=== PATIENT | male | born 1935 | race Caucasian/White ===

== ENCOUNTER → 2016-10-04 | Outpatient (CLI) | payer BC ==
[2016-10-04 13:44] LABS: URINE APPEARANCE CLEAR (CLEAR); URINE BILIRUBIN NEG (NEG); URINE COLOR YELLOW; URINE EPITHELIAL CELL AUTO 0-5 /lpf (0-5); URINE NITRITE NEG (NEG); URINE PH 6.5 (4.5-7.5); URINE SPECIFIC GRAVITY 1.014 (1.000-1.030); UROBILINOGEN NEG (NEG)
[2016-10-04 13:54] LABS: MANUAL MICROSCOPIC REQUIRED? NO; REVIEW REQ? NO
== END | disposition home or self-care (01) ==
LOC: C.LAB1850 12:05
PROVIDERS: ATTEND Internal Medicine
DX: N40.0 Benign prostatic hyperplasia without lower urinary tract symptoms (principal)

== ENCOUNTER → 2016-12-04 | Outpatient (CLI) | payer BC ==
[2016-12-04 15:28] LABS: BLOOD UREA NITROGEN 15 mg/dl (7-18); CARBON DIOXIDE 30 mmol/L (21-32); CHLORIDE 105 mmol/L (98-107); GLUCOSE 77 mg/dl (70-99); POTASSIUM 3.9 mmol/L (3.5-5.1); SODIUM 141 mmol/L (136-145)
== END | disposition home or self-care (01) ==
LOC: C.LAB1850 13:47
PROVIDERS: ATTEND Internal Medicine
DX: G62.9 Polyneuropathy, unspecified (principal)

== ENCOUNTER → 2017-04-20 | Outpatient (CLI) | payer BC | END | disposition home or self-care (01) | LOC: C.LAB1850 13:18 | PROVIDERS: ATTEND Internal Medicine Endocrinology, Diabetes & Metabolism | DX: E23.0 Hypopituitarism (principal) ==

== ENCOUNTER → 2017-05-24 | Outpatient (CLI) | payer BC ==
[2017-05-24 16:57] LABS: CALCIUM 9.4 mg/dl (8.5-10.1)
[2017-05-25 07:05] LABS: ESTIMATED AVERAGE GLUCOSE 111 mg/dl; HA1C FLAG Normal (Normal)
[2017-05-29 22:20] LABS: ILGF1 Z SCORE MALE 0.9 SD (-2.0 - +2.0)
== END | disposition home or self-care (01) ==
LOC: C.LAB1850 14:09
PROVIDERS: ATTEND Internal Medicine Endocrinology, Diabetes & Metabolism
DX: E55.9 Vitamin D deficiency, unspecified (principal); R73.9 Hyperglycemia, unspecified; E03.8 Other specified hypothyroidism; M85.80 Other specified disorders of bone density and structure, unspecified site; E27.49 Other adrenocortical insufficiency; Z87.898 Personal history of other specified conditions; E23.0 Hypopituitarism; Z92.29 Personal history of other drug therapy

== ENCOUNTER 2024-11-03 11:20 | Inpatient (IN) ==
--- NOTE | 2024-11-03 11:27 | Emergency Department Note ---
Impression & Plan Compression fracture of L2 lumbar vertebra, Sacral insufficiency fracture, Ambulatory dysfunction, Back pain ED Provider Note NAME: HUMPHREY CESPEDES AGE: 88 SEX: M : 1935 ARRIVES VIA: Ambulance INFORMANT: Patient, ED PROVIDER(S): Arturo Klein MD CHIEF COMPLAINT: Fall, back pain MEDICAL DECISION MAKING: Patient presents with the above. IV was established and blood work was obtained. Patient also did have CT completed of the lumbar spine. Patient was ordered IV morphine 2 mg IV methylprednisolone 1 of 25 mg, Tylenol as well as lidocaine patch. Patient's blood work shows a white count 11.2 with a normal H&H and platelet count. The patient's kidney function is unremarkable. CK of 333. Patient is tolerating by mouth. The patient CT does show concern for L2 compression fracture with 30% loss of vertebral body height. Acute to subacute bilateral sacral wes insufficiency fractures. L4 compression fracture noted which is new from prior comparison but likely chronic in nature. I did inform the patient of these findings. The patient is still moving his legs well but does have pain with trying to do straight leg raise. I did speak the on-call hospital service cleared Jerrod and Dr. Kraig mariscal. I did speak with Dr. Coon who did agree with an LSO and pain management. Patient was admitted to the medicine service. Definitive Fracture Care note: Dx: L2 compression fracture Plan: Immobilization, rest, ice, elevation, analgesia, orthopedic follow up in 3-5 days. Discussion w/ other healthcare providers: Dr. Elder and Dr. Guerrero our inpatient medicine service Dr. Coon orthopedic spine Prior /Outside records reviewed: none Differential diagnosis: Musculoskeletal, disc herniation, fracture, metastatic disease, cord compression, discitis, sciatica, cauda equina, infection, aortic disease, renal colic, gastrointestinal, as well as other pathologies. Diagnostics, as interpreted by me: ECG:Sinus, rate of 77, normal intervals, normal axis, T wave versions in lead III. No obvious ST elevations. Cardiac monitoring: An order was placed for continuous cardiac monitoring. The monitor shows a rate of 79 with sinus rhythm. Patient was placed on pulse oximetry Medical decision rules: None Imaging studies: I informally interpreted the patient's lumbar CT does show concern for lumbar compression fracture with formal report to follow. HPI: Patient presents due to concern for back pain. The patient reports that he fell and initially at the time of the fall in his kitchen which is a slight floor he did not have any pain at that time but then the following morning which was of the patient had pain. The patient states that he is essentially been laying in bed for the last several days. Patient does have a neighbor that has an adjoining apartments so he has been able to bring him something to eat and drink as well as take his medications. Patient has taken some Tylenol at home. No significant relief. Patient denies any head strike or LOC. He does not take any blood thinning medications. The patient has had difficulty with ambulation to the point where he has not been walking much at all these last several days. Patient does complain of lower back pain. No bowel or bladder incontinence or retention no saddle anesthesia. PAST MEDICAL HISTORY: See Below PAST SURGICAL HISTORY: See Below SOCIAL HISTORY: See Below HOME MEDICATIONS: See Below ALLERGIES: See Below VITALS: See Below PHYSICAL EXAMINATION: GENERAL: NAD, non-toxic. EYE EXAM: Normal conjunctiva. PERRL, no anisocoria and EOM's grossly intact w/o pain. OROPHARYNX: Moist mucus membranes, grossly normal dentition. NECK: Trachea midline, no stridor. Supple, no nuchal rigidity, no adenopathy, non-tender. No signs of meningismus. FROM of the neck with good chin to chest and neck extension. LUNGS: Clear to auscultation. Normal chest wall mechanics. HEART: NSR, no MRG. ABDOMEN: Abdomen soft, non-tender, no masses, no rebound or guarding. BACK: No CVA TTP. Reproducible midline lower back and sacral pain. SKIN: No rashes and no bruising. UPPER EXTREMITIES: Upper extremities are grossly normal. LOWER EXTREMITIES: Grossly normal, no edema. Able to bend at the knees, difficulty with straight leg raise secondary to back pain. NEURO EXAM: A&O x3, cranial nerves II-XII grossly intact, normal speech, moves all 4 extremities. Past Med/Surg History Problem List Back pain (Acute) Ambulatory dysfunction (Acute) Sacral insufficiency fracture (Acute) Compression fracture of L2 lumbar vertebra (Acute) Hyperreflexia Weakness Brain fog Health care maintenance Cerebral microvascular disease H/O: CVA (cerebrovascular accident) Left-sided face pain History of colon polyps Vitamin D deficiency TMJ arthropathy (Chronic) Post herpetic neuralgia (Chronic) Gait abnormality (Chronic) BPH with obstruction/lower urinary tract symptoms (Acute) Essential hypertension (Acute) no meds Growth hormone deficiency (Acute) Hyperglycemia (Chronic) Intestinal disaccharidase deficiency (Acute) Irritable bowel syndrome (Chronic) Lumbar spinal stenosis (Chronic) Osteopenia (Acute) 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 Medical History Left ear impacted cerumen BPH (benign prostatic hyperplasia) IBS (irritable bowel syndrome) Growth hormone insufficiency Macular degeneration TMJ (temporomandibular joint disorder) gets pain in left side from time to time, hasn't locked Family history of colon cancer in mother Post herpetic neuralgia History of shingles 2018, covered whole left side of scalp and part of eye/face Bloating Hx of gout Tooth abscess resolved Kidney stones passed on own Diverticular disease Sciatica, unspecified side Surgical History History of open reduction and internal fixation (ORIF) procedure rt. femur History of cataract surgery left/right History of esophagogastroduodenoscopy (EGD) History of colonoscopy History of tooth extraction 1 abscessed molar removed History of tonsillectomy H/O partial hypophysectomy Family History Father Aneurysm Cerebrovascular disease Hypertension Mother Colorectal cancer Denies family history of Ovarian cancer Prostate cancer Myocardial infarction Breast cancer Social History Smoking Status: Never smoker Tobacco Type: Cigarettes Second Hand Exposure: No; Do You Dip or Chew Tobacco: No; Hx Alcohol Use: Yes Alcohol type: beer and wine Hx Substance Use: Yes (Medical Marijuana) Last Used Substance: Unknown Last Used Substance Other:: almost every daily Substance Use Type Other:: medical card > flower buds > uses prn Preferred Language: Wolof Communication Ability: Effective Pediatric Physical Therapy Assistant Required: No Beliefs That Will Affect Care: None marital status: Single Current Living Situation: Alone current occupational status: retired Feels Safe at Home: Yes Childhood Exposure to Second-Hand Smoke: Yes Dental Care, Regularly: Yes Physical Activity Frequency: 1-2 Times per Week Seatbelt Use: always Sunscreen Use: No Assistive Devices: Glasses and Walker Allergies Allergies Allergy/AdvReac Type Severity Reaction Status Date / Time gabapentin [From Neurontin] Allergy Intermediate "felt like Verified 11/03/24 15:52 a zombie" Iodinated Contrast Media Allergy Intermediate INTENSE Verified 11/03/24 15:52 HIVES/ITCHING lactose Allergy Intermediate Gastrointestinal Verified 11/03/24 15:52 Upset Home Meds Home Medications Medication Instructions Recorded Confirmed cholecalciferol (vitamin D3) 25 1,000 units PO BID 05/28/19 11/03/24 mcg (1,000 unit) capsule omega-3 fatty acids 1,000 mg 1,000 mg PO QPM 05/28/19 11/03/24 capsule thiamine HCl (vitamin B1) 100 mg 100 mg PO QAM 09/29/21 11/03/24 tablet CBD cream 1 dose topical UD PRN Pain 07/17/23 11/03/24 Medical Marijuana 1 dose PO DIRECTED 10/22/23 11/03/24 aspirin 81 mg tablet,delayed 81 mg PO DAILY 11/03/24 11/03/24 release psyllium husk 0.52 gram capsule 1.56 g PO DAILY 11/03/24 11/03/24 (Fiber-Caps (psyllium husk)) vit C 250 mg-vit E 90 mg-zinc 40 1 tab PO BID 11/03/24 11/03/24 mg-copper 1 [id number] capsule (PreserVision AREDS-2) Previous Rx's Medication Instructions Recorded ibandronate 150 mg tablet 150 mg PO Q30D #3 tabs 01/08/24 somatropin 5 mg/1.5 mL (3.3 mg/mL) 0.2 mg (0.06 mL) subcut DAILY 90 01/11/24 subcutaneous pen injector days #6 mL (Norditropin FlexPro) levothyroxine 112 mcg tablet 112 mcg PO QAM #90 tabs 07/09/24 tamsulosin 0.4 mg capsule 0.4 mg PO QAM #90 caps 08/08/24 hydrocortisone 10 mg tablet See Rx Instructions .Route 08/18/24 .COMPLEX #405 tabs testosterone 1 % (50 mg/5 gram) 1 packet transdermal DAILY #450 10/08/24 transdermal gel packet grams celecoxib 100 mg capsule (Celebrex) 100 mg PO QPM #90 caps 10/31/24 Results & Data (ED) Home Medications Current Medication List: was personally reviewed by me Laboratory Data Attestation: I reviewed the patient's lab results. 11/04/24 07:32 11/04/24 07:32 Lab Results 11/03/24 Range/Units 11:37 WBC 11.28 H (4.8-10.8) K/ul RBC 5.55 (4.70-6.10) M/uL Hgb 16.0 (14.0-18.0) g/dl Hct 45.9 (42.0-52.0) % MCV 82.7 (80.0-100.0) fL MCH 28.8 (25.0-34.0) pg MCHC 34.9 (32.0-36.0) g/dL RDW Std Deviation 40.0 (36.4-46.3) fL RDW Coeff of Yesi 13.3 (11.5-14.5) % Plt Count 277 (130-400) K/uL MPV 9.2 L (9.4-12.4) fL Immature Gran % (Auto) 0.9 % Neut % (Auto) 78.1 % Lymph % (Auto) 7.9 % [place] % (Auto) 12.2 % Eos % (Auto) 0.5 % Baso % (Auto) 0.4 % Neut # (Auto) 8.81 H (1.40-6.50) K/uL Lymph # (Auto) 0.89 L (1.20-3.40) K/uL [place] # (Auto) 1.38 H (0.11-0.59) K/uL Eos # (Auto) 0.06 (0.00-0.50) K/uL Baso # (Auto) 0.04 (0.00-0.20) K/uL Immature Gran # (Auto) 0.10 (0.01-0.20) K/uL Sodium 140 (136-145) mmol/L Potassium 3.5 (3.5-5.1) mmol/L Chloride 105 (98-107) mmol/L Carbon Dioxide 25 (21-32) mmol/L Anion Gap 10 (3-11) BUN 13 (6-23) mg/dl Creatinine 0.78 (0.6-1.4) mg/dl Est Cr Clr Drug Dosing 72.3 ml/min eGFR 86.31 BUN/Creatinine Ratio 16.7 (10-20) Glucose 132 H (70-99(Fasting)) mg/dl Calcium 9.3 (8.6-10.3) mg/dl Total Bilirubin 1.2 H (0.2-1.0) mg/dl AST 28 (13-39) U/L ALT 19 (7-52) U/L Alkaline Phosphatase 58 (34-104) U/L Total Creatine Kinase 333 H (30-223) U/L Total Protein 7.7 (6.0-8.3) gm/dl Albumin 4.4 (3.4-5.0) gm/dl Globulin 3.3 (2.5-4.0) gm/dl Albumin/Globulin Ratio 1.3 (0.9-2) Administered Medications Acetaminophen (Acetaminophen 500 Mg Tab) 1,000 mg PO Q8H ARI Stop: 12/03/24 17:59 Last Admin: 11/04/24 08:01 Dose: 1,000 mg Documented By: Admin: 11/04/24 05:04 Dose: Not Given Documented By: Admin: 11/03/24 19:13 Dose: 1,000 mg Documented By: CEF Aspirin (Aspirin 81 Mg Ectab) 81 mg PO DAILY ARI Stop: 12/04/24 08:59 Last Admin: 11/04/24 08:00 Dose: 81 mg Documented By: PENELOPE Calcitonin Deer (Calcitonin Deer Na 200 Iu/Ac 3.7 Ml Btl) 1 sprays NA DAILY ARI Stop: 12/04/24 08:59 Last Admin: 11/04/24 08:00 Dose: 1 sprays Documented By: PENELOPE Calcium Polycarbophil (Calcium Polycarbophil 625mg Tab) 625 mg PO DAILY ARI Stop: 12/04/24 08:59 Last Admin: 11/04/24 08:00 Dose: 625 mg Documented By: PENELOPE Celecoxib (Celecoxib 100 Mg Cap) 100 mg PO QPM ARI Stop: 12/03/24 20:59 Last Admin: 11/03/24 20:19 Dose: 100 mg Documented By: CEF Fish Oil (Elmore-3 (Purified Fish Oil) 1 Gm Cap) 1 cap PO QPM ARI Stop: 12/03/24 20:59 Last Admin: 11/03/24 20:19 Dose: 1 cap Documented By: CEF Hydrocortisone (Hydrocortisone 10 Mg Tab) 20 mg PO QPM ARI Stop: 12/03/24 20:59 Last Admin: 11/03/24 20:19 Dose: 20 mg Documented By: CEF Levothyroxine Sodium (Levothyroxine Sodium 112 Mcg Tablet) 112 mcg PO DAILYBB ARI Stop: 12/04/24 06:29 Last Admin: 11/04/24 06:07 Dose: 112 mcg Documented By: LEXX Lidocaine (Lidocaine 5% 1 Patch) 1 patch TD QAM ARI Stop: 12/04/24 08:59 Last Admin: 11/04/24 08:01 Dose: 1 patch Documented By: PENELOPE Miscellaneous (Remove Lidoderm Patch) 1 each N/A DAILY@2100 [facility] Stop: 12/03/24 20:59 Last Admin: 11/03/24 20:22 Dose: Not Given Documented By: CEF Miscellaneous (Testosterone 1% Gel--Order Awaiting Action) 1 each N/A QS [facility] Stop: 12/04/24 00:00 Last Admin: 11/04/24 15:08 Dose: Not Given Documented By: Admin: 11/04/24 09:30 Dose: Not Given Documented By: Admin: 11/03/24 23:43 Dose: Not Given Documented By: LEXX Miscellaneous (Do Not Tube-- Norditropin Flexpro--Order Awaiting Action) 1 each N/A QS [facility] Stop: 12/04/24 15:59 Last Admin: 11/04/24 15:26 Dose: Not Given Documented By: PENELOPE Multivitamins/Minerals (Cerovite Adv Formula Tab) 1 tab PO BID ARI Stop: 12/03/24 20:59 Last Admin: 11/04/24 08:00 Dose: 1 tab Documented By: Admin: 11/03/24 20:20 Dose: 1 tab Documented By: CEF Polyethylene Glycol (Polyethylene (Miralax) 17 Gm Pack) 17 gm PO DAILY ARI Stop: 12/04/24 12:29 Last Admin: 11/04/24 12:39 Dose: 17 gm Documented By: TLCortes Somatropin (Somatropin 5 Mg/1.5 Ml Pen) 0.2 mg SQ DAILY ARI Stop: 12/04/24 13:29 Last Admin: 11/04/24 15:07 Dose: Not Given Documented By: TLCortes Tamsulosin HCl (Tamsulosin Hcl 0.4 Mg Cap) 0.4 mg PO QAM ARI Stop: 12/04/24 08:59 Last Admin: 11/04/24 08:00 Dose: 0.4 mg Documented By: PENELOPE Thiamine HCl (Thiamine Hcl 100 Mg Tab) 100 mg PO QAM ARI Stop: 12/04/24 08:59 Last Admin: 11/04/24 08:00 Dose: 100 mg Documented By: PENELOPE Vitamin D (Cholecalciferol 25 Mcg (1000 Units) Tab) 25 mcg PO BID ARI Stop: 12/03/24 20:59 Last Admin: 11/04/24 08:00 Dose: 25 mcg Documented By: TLCortes Admin: 11/03/24 20:19 Dose: 25 mcg Documented By: CEF Discontinued Medications Acetaminophen (Acetaminophen 500 Mg Tab) 1,000 mg PO NOW STA Stop: 11/03/24 11:53 Last Admin: 11/03/24 12:08 Dose: 1,000 mg Documented By: MOLLY Labetalol HCl (Labetalol Hcl Iv 5 Mg/Ml 20ml) 10 mg IV NOW STA Stop: 11/03/24 13:49 Last Admin: 11/03/24 13:57 Dose: 10 mg Documented By: DAVID Lidocaine (Lidocaine 5% 1 Patch) 1 patch TD NOW STA Stop: 11/03/24 11:53 Last Admin: 11/03/24 12:08 Dose: 1 patch Documented By: MOLLY Methylprednisolone (Methylprednisolone 125 Mg/2 Ml Vial) 125 mg IV NOW STA Stop: 11/03/24 11:53 Last Admin: 11/03/24 12:08 Dose: 125 mg Documented By: MOLLY Miscellaneous (Remove Lidoderm Patch) 1 each N/A DAILY@2100 ARI Stop: 12/03/24 20:59 Last Admin: 11/03/24 20:26 Dose: 1 each Documented By: CEF Miscellaneous (Do Not Tube-- Norditropin Flexpro--Order Awaiting Action) 1 each N/A QS ARI Stop: 12/04/24 00:00 Last Admin: 11/04/24 09:30 Dose: Not Given Documented By: Admin: 11/03/24 23:43 Dose: Not Given Documented By: LEXX Morphine Sulfate (Morphine Sulfate 4 Mg/Ml 1 Ml Carp\\Vial) 2 mg IV NOW STA Stop: 11/03/24 11:53 Last Admin: 11/03/24 12:07 Dose: 2 mg Documented By: MOLLY Imaging Data Radiologist's Impression: Lumbar Spine CT 11/03/24 11:53 CT lumbar spine wo con CLINICAL HISTORY: Back Pain s/p fall, midline COMPARISON STUDY: Lumbar spine radiographs January 13, 2004 18 and September 08, 2021. CT of the abdomen and pelvis January 17, 2021. TECHNIQUE: Axial images of the lumbar spine were obtained without IV contrast. Sagittal and coronal reformats were viewed. Automated exposure control was utilized for the study. A dose lowering technique was utilized adhering to the principles of ALARA. FINDINGS: For purposes of numbering on this exam, the L5-S1 disc space is assigned to axial image 352 of 418. L4 compression fracture with 50% loss of vertebral body height is new since prior radiographs of September 08, 2021 but is chronic appearing. There is an acute appearing compression fracture along the inferior endplate of L2 with mild concavity which results in 30% loss of vertebral body height. Acute to subacute bilateral sacral ala fractures are present. There is minimal presacral stranding. Severe facet arthrosis is noted at multiple levels within the lumbar spine. Moderate multilevel degenerative disc disease is most advanced at the L5-S1 level. No suspicious osseous lesions. Bilateral adrenal nodules are unchanged. These are benign. IMPRESSION: 1. Acute compression fracture along the inferior endplate of L2 which extends to the anterior cortex with 30% loss of vertebral body height. 2. Acute to subacute bilateral sacral ala insufficiency fractures. 3. L4 compression fracture which is new since radiographs of September 08, 2021 but likely chronic. 4. Moderate multilevel degenerative disc disease and facet arthrosis within the lumbar spine. ACT 112: Negative or not required by law. Electronically signed by: Robb Reid M.D. 11/03/2024 12:24 PM Discharge Plan Visit Data Chief Complaint: Leg Weakness, Bilateral Stated Complaint: LOWER BACK PAIN, FALL ED Provider: Arturo Klein Discharge Problem: Compression fracture of L2 lumbar vertebra, Sacral insufficiency fracture, Ambulatory dysfunction, Back pain Patient Disposition: Admitted As Inpatient Discharge Instructions Interventions: ED Discharge Assessment Last Done: 11/03/24 17:33 Discharge Problem: Compression fracture of L2 lumbar vertebra Qualifiers: Encounter type: initial encounter Qualified Code(s): S32.020A - Wedge compression fracture of second lumbar vertebra, initial encounter for closed fracture Sacral insufficiency fracture Qualifiers: Encounter type: initial encounter Qualified Code(s): M84.48XA - Pathological fracture, other site, initial encounter for fracture Back pain Qualifiers: Back pain location: low back pain Chronicity: acute Back pain laterality: m idline Sciatica presence: unspecified whether sciatica present Qualified Code(s): M54.50 - Low back pain, unspecified
[2024-11-03] MEDS: MoRPHine SULFATE 4 MG/ML 1 ML CARP\\VIAL IV STA (12:07)
[2024-11-03] MEDS: ACETAMINOPHEN 500 MG TAB PO STA (12:08)
[2024-11-03] MEDS: methylPREDNISolone 125 MG/2 ML VIAL IV STA (12:08)
[2024-11-03] MEDS: LIDOCAINE 5% 1 PATCH TD STA (12:08)
[2024-11-03 12:25] LABS: Basophils # (auto) 0.04 K/uL (0.00-0.20); Basophils % (auto) 0.4 %; Eosinophils # (auto) 0.06 K/uL (0.00-0.50); Eosinophils % (auto) 0.5 %; Hematocrit (blood only) 45.9 % (42.0-52.0); Immature Granulocytes % (auto) 0.9 %; Lymphocytes # (auto) 0.89 K/uL (1.20-3.40); Lymphocytes % (auto) 7.9 %; Mean Corpuscular Hemoglobin 28.8 pg (25.0-34.0); Mean Corpuscular Hgb Conc 34.9 g/dL (32.0-36.0); Mean Corpuscular Volume 82.7 fL (80.0-100.0); Mean Platelet Volume 9.2 fL (9.4-12.4); Monocytes # (auto) 1.38 K/uL (0.11-0.59); Monocytes % (auto) 12.2 %; Neutrophils # (auto) 8.81 K/uL (1.40-6.50); Neutrophils % (auto) 78.1 %; Platelet Count 277 K/uL (130-400); RDW Coefficient of Variation 13.3 % (11.5-14.5); Red Blood Count 5.55 M/uL (4.70-6.10); White Blood Count 11.28 K/ul (4.8-10.8)
--- NOTE | 2024-11-03 12:26 | CT Scan Report ---
CT lumbar spine wo con CLINICAL HISTORY: Back Pain s/p fall, midline COMPARISON STUDY: Lumbar spine radiographs January 13, 2004 18 and September 08, 2021. CT of the abdomen a nd pelvis January 17, 2021. TECHNIQUE: Axial images of the lumbar spine were obtained without IV contrast. Sagittal and coronal r eformats were viewed. Automated exposure control was utilized for the study. A dose lowering techniq ue was utilized adhering to the principles of ALARA. FINDINGS: For purposes of numbering on this exam, the L5-S1 disc space is assigned to axial image 352 of 418. L4 compression fracture with 50% loss of vertebral body height is new since prior radiograph s of September 08, 2021 but is chronic appearing. There is an acute appearing compression fracture carmen g the inferior endplate of L2 with mild concavity which results in 30% loss of vertebral body height. Acute to subacute bilateral sacral ala fractures are present. There is minimal presacral stranding. Severe facet arthrosis is noted at multiple levels within the lumbar spine. Moderate multilevel degen erative disc disease is most advanced at the L5-S1 level. No suspicious osseous lesions. Bilateral ad renal nodules are unchanged. These are benign. IMPRESSION: 1. Acute compression fracture along the inferior endplate of L2 which extends to the anterior cortex with 30% loss of vertebral body height. 2. Acute to subacute bilateral sacral ala insufficiency fractures. 3. L4 compression fracture which is new since radiographs of September 08, 2021 but likely chronic. 4. Moderate multilevel degenerative disc disease and facet arthrosis within the lumbar spine. ACT 112: Negative or not required by law. Electronically signed by: Robb Reid M.D. 11/03/2024 12:24 PM
[2024-11-03 12:40] LABS: Creatinine Clr Calc Pharmacy 72.3 ml/min
[2024-11-03 12:52] LABS: Albumin Globulin Ratio 1.3 (0.9-2); Albumin Level 4.4 gm/dl (3.4-5.0); BUN Creatinine Ratio 16.7 (10-20); Bilirubin,Total 1.2 mg/dl (0.2-1.0); Calcium 9.3 mg/dl (8.6-10.3); Globulin 3.3 gm/dl (2.5-4.0); Potassium 3.5 mmol/L (3.5-5.1); Total Protein 7.7 gm/dl (6.0-8.3)
[2024-11-03] MEDS: LABETALOL HCL IV 5 MG/ML 20ML IV STA (13:57)
--- NOTE | 2024-11-03 15:02 | History & Physical Report ---
Date of Service November 03, 2024 Assessment & Plan (1) Compression fracture of L2 lumbar vertebra: (2) Sacral insufficiency fracture: (3) Ambulatory dysfunction: (4) Essential hypertension: (5) Osteopenia: (6) Secondary adrenal insufficiency: (7) Pituitary hypothyroidism: (8) Pituitary hypogonadism: Plan 88 year old male presenting with lumbar compression fracture and ambulatory dysfunction. #Compression Fracture L2/Sacral insufficiency fracture/Ambulatory dysfunction - as noted at CT lumbar spine - ED physician with page out to ortho/spine awaiting call back - S/p 125mg methylprednisone in ED - Pain regimen with lidocaine patch, scheduled Tylenol,morphine 1mg pain 6-8 q4h prn, 2mg pain 9-10 q4h prn - PT/OT ordered #HTN - elevated blood pressures s/p 10mg labetalol in the ED - without signs of HTN emergency -> chest pain, dyspnea, blurred vision, head ache - was on metoprolol for HTN per pt, not currently on any antihypertensives at home - will continue to monitor #Osteoporosis - treatment in the past per endocrinology - will need continued f/u in the setting of compression fracture #History of Pituitary adenoma/Panhypopituitarism - Adrenal insufficiency-> continue home dose hydrocortisone - Hypothyroidism-> continue levothyroxine - Hypogonadism-> continue testosterone Diet: Regular Code: Full VTE Prophylaxis: Hold chemical pending ortho spine History of Present Illness Primary Care Provider: Hank Peterson MD 88 year old male with a past medical history of Pituitary neoplasm/panhypopituitarism, osteoporosis, BPH, peripheral neuropathy presenting with back pain after fall. Was started on Cymbalta by neurology for peripheral neuropathy 10/23/24. States that 4 days ago he felt that his blood pressure was low after taking Cymbalta, feel from standing to ground. Acute low back pain since then, has been having trouble getting out of bed. Denies bowel/bladder incontinence, weakness, saddle anesthesia. Best friend is in room with him, they give 1 floor apart in apartment complex. ED course significant for: CBC, CMP unremarkable, CK= 333. CT lumbar spine with acute compression fracture L2, acute/subacute B/L sacral ala insufficiency fracture, chronic L4 compression fracture, multi degenerative disc disease. Hypertensive BP= 200s/100s S/p 125mg methylprednisone, 2mg morphine, lidocaine patch, Tylenol 1000mg, 10mg labetalol Allergies Allergy/AdvReac Type Severity Reaction Status Date / Time gabapentin [From Neurontin] Allergy Intermediate "felt like Verified 11/03/24 15:52 a zombie" Iodinated Contrast Media Allergy Intermediate INTENSE Verified 11/03/24 15:52 HIVES/ITCHING lactose Allergy Intermediate Gastrointestinal Verified 11/03/24 15:52 Upset Home Medications Medication Instructions Recorded Confirmed Type cholecalciferol (vitamin D3) 25 1,000 units PO BID 05/28/19 11/03/24 History mcg (1,000 unit) capsule omega-3 fatty acids 1,000 mg 1,000 mg PO QPM 05/28/19 11/03/24 History capsule thiamine HCl (vitamin B1) 100 mg 100 mg PO QAM 09/29/21 11/03/24 History tablet CBD cream 1 dose topical UD PRN Pain 07/17/23 11/03/24 History Medical Marijuana 1 dose PO DIRECTED 10/22/23 11/03/24 History ibandronate 150 mg tablet 150 mg PO Q30D #3 tabs 01/08/24 11/03/24 Rx somatropin 5 mg/1.5 mL (3.3 mg/mL) 0.2 mg (0.06 mL) subcut DAILY 90 01/11/24 11/03/24 Rx subcutaneous pen injector days #6 mL (Norditropin FlexPro) levothyroxine 112 mcg tablet 112 mcg PO QAM #90 tabs 07/09/24 11/03/24 Rx tamsulosin 0.4 mg capsule 0.4 mg PO QAM #90 caps 08/08/24 11/03/24 Rx hydrocortisone 10 mg tablet See Rx Instructions .Route 08/18/24 11/03/24 Rx .COMPLEX #405 tabs testosterone 1 % (50 mg/5 gram) 1 packet transdermal DAILY #450 10/08/24 11/03/24 Rx transdermal gel packet grams celecoxib 100 mg capsule (Celebrex) 100 mg PO QPM #90 caps 10/31/24 11/03/24 Rx aspirin 81 mg tablet,delayed 81 mg PO DAILY 11/03/24 11/03/24 History release psyllium husk 0.52 gram capsule 1.56 g PO DAILY 11/03/24 11/03/24 History (Fiber-Caps (psyllium husk)) vit C 250 mg-vit E 90 mg-zinc 40 1 tab PO BID 11/03/24 11/03/24 History mg-copper 1 [id number] capsule (PreserVision AREDS-2) Past Med/Surg History Problem List Ambulatory dysfunction Sacral insufficiency fracture Compression fracture of L2 lumbar vertebra Hyperreflexia Weakness Brain fog Health care maintenance Cerebral microvascular disease H/O: CVA (cerebrovascular accident) Left-sided face pain History of colon polyps Vitamin D deficiency TMJ arthropathy (Chronic) Post herpetic neuralgia (Chronic) Gait abnormality (Chronic) BPH with obstruction/lower urinary tract symptoms (Acute) Essential hypertension (Acute) no meds Growth hormone deficiency (Acute) Hyperglycemia (Chronic) Intestinal disaccharidase deficiency (Acute) Irritable bowel syndrome (Chronic) Lumbar spinal stenosis (Chronic) Osteopenia (Acute) Pituitary hypogonadism (Acute) Pituitary hypothyroidism (Acute) Secondary adrenal insufficiency (Acute) Polyneuropathy, unspecified (Acute) History of pituitary neoplasm (Chronic) 2006- [facility] Medical History (Updated 11/03/24 @ 15:26 by Ruth Elder, ) Left ear impacted cerumen BPH (benign prostatic hyperplasia) IBS (irritable bowel syndrome) Growth hormone insufficiency Macular degeneration TMJ (temporomandibular joint disorder) gets pain in left side from time to time, hasn't locked Family history of colon cancer in mother Post herpetic neuralgia History of shingles 2018, covered whole left side of scalp and part of eye/face Bloating Hx of gout Tooth abscess resolved Kidney stones passed on own Diverticular disease Sciatica, unspecified side Surgical History History of open reduction and internal fixation (ORIF) procedure rt. femur History of cataract surgery left/right History of esophagogastroduodenoscopy (EGD) History of colonoscopy History of tooth extraction 1 abscessed molar removed History of tonsillectomy H/O partial hypophysectomy Family History Father Aneurysm Cerebrovascular disease Hypertension Mother Colorectal cancer Denies family history of Ovarian cancer Prostate cancer Myocardial infarction Breast cancer Social History Smoking Status: Never smoker Tobacco Type: Cigarettes Second Hand Exposure: No; Do You Dip or Chew Tobacco: No; Hx Alcohol Use: Yes Alcohol type: beer and wine Hx Substance Use: Yes (Medical Marijuana) Last Used Substance: Unknown Last Used Substance Other:: almost every daily Substance Use Type Other:: medical card > flower buds > uses prn Preferred Language: Guinean Communication Ability: Effective Hostess Cashier Required: No Beliefs That Will Affect Care: None marital status: Single Current Living Situation: Alone current occupational status: retired Other Information That Helps Us Care for You: No Feels Safe at Home: Yes Safety Concerns: Feels Safe At This Time Childhood Exposure to Second-Hand Smoke: Yes Dental Care, Regularly: Yes Physical Activity Frequency: 1-2 Times per Week Seatbelt Use: always Sunscreen Use: No Assistive Devices: Glasses Review of Systems Review of Systems: As per above Physical Exam 2 Physical Exam: Constitutional: well-appearing, no acute distress HEENT: NCAT, no conjunctival injection CV: regular rhythm, no murmur appreciated, extremities well-perfused, no LE edema Resp: CTABL, no wheezes/rales/rhonchi appreciated, no increased work of breathing GI: soft, nondistended, nontender MSK: no gross deformities appreciated, strength 5/5 LE B/L Skin: warm, dry, no rash appreciated Neuro: alert, oriented, no focal neurologic deficit appreciated Results & Data Results & Data Vital Signs (Past 12 Hours) Vital Signs Temp Pulse Pulse Resp BP BP Pulse Ox 11/03/24 13:57 109 H 209/119 H 11/03/24 13:37 91 H 18 209/119 H 97 11/03/24 12:14 97 11/03/24 12:09 83 11/03/24 11:26 37.0 C 83 16 205/119 H 97 O2 Del Method 11/03/24 13:57 11/03/24 13:37 Room Air 11/03/24 12:14 Room Air 11/03/24 12:09 11/03/24 11:26 Room Air Supervising Physician Co-Signing Physician Notes I personally examined the patient and verified all olivo points of history and exam, discussed case, and agree with decision making with Dr Elder Back pain. Better controlled with medications. Vitals noted, in general he is awake and alert pleasant no distress. HEENT normocephalic atraumatic mucous membranes moist. He is laying flat on his back and not moving much. Breathing unlabored no accessory muscle use good effort. Skin without rashes pallor or icterus. Neuro shows no focal deficits. Osteoporotic fractures of L-spine and sacrumhighly doubt these will require any surgical intervention. Pain control, PT/OT eval and treat. Patient would like to avoid rehab if at all possible, discussed this will mainly be continued on how he is doing. Assuming no surgical intervention required, anticipate initiating pharmacologic DVT prophylaxis tomorrow. Will need outpatient follow- up with endocrine in regards to his osteoporosis. otherwise as above Resident Activity Tracking Resident Involvement: Resident Care Provided Care Provided: Adult Hospital Medicine
[2024-11-03] MEDS ORDERED: NON-FORMULARY MEDICATION (Ibandronate 150 mg tablet) PO SCH (17:32)
[2024-11-03] MEDS ORDERED: MoRPHine SULFATE 2 MG/ML CARP IV PRN (17:32)
[2024-11-03] MEDS: ACETAMINOPHEN 500 MG TAB PO SCH (19:13)
[2024-11-03] MEDS: OMEGA-3 (PURIFIED FISH OIL) 1 GM CAP PO SCH (20:19)
[2024-11-03] MEDS: CHOLECALCIFEROL 25 MCG (1000 UNITS) TAB PO SCH (20:19)
[2024-11-03] MEDS: CELECOXIB 100 MG CAP PO SCH (20:19)
[2024-11-03] MEDS: HYDROCORTISONE 10 MG TAB PO SCH (20:19)
[2024-11-03] MEDS: CEROVITE ADV FORMULA TAB PO SCH (20:20)
--- NOTE | 2024-11-03 20:31 | Billing Data ---
Date of Service November 03, 2024 Coding Level of Care Code 59697 INT INP/OBS CARE
[2024-11-04] MEDS: LEVOTHYROXINE SODIUM 112 MCG TABLET PO SCH (06:07)
--- NOTE | 2024-11-04 07:29 | Hospitalist Progress Note ---
Date of Service November 04, 2024 Assessment & Plan (1) Compression fracture of L2 lumbar vertebra: (2) Sacral insufficiency fracture: (3) Ambulatory dysfunction: (4) Essential hypertension: (5) Osteopenia: (6) Secondary adrenal insufficiency: (7) Pituitary hypothyroidism: (8) Pituitary hypogonadism: Plan 88 year old male presenting with lumbar compression fracture and ambulatory dysfunction. #Compression Fracture L2/Sacral insufficiency fracture/Ambulatory dysfunction - as noted at CT lumbar spine - ED physician with page out to ortho/spine awaiting call back - S/p 125mg methylprednisone in ED - Continue lidocaine patch, scheduled Tylenol,morphine 1mg pain 6-8 q4h prn, 2mg pain 9-10 q4h prn - Continue Calcitonin spray - Continue celecoxib 100mg qpm - Consider LSO brace - PT/OT ordered, awaiting recommendations #HTN - elevated blood pressures s/p 10mg labetalol in the ED - BP remains elevated today ranging from 132/83 to 178/92 likely elevated due to pain - without signs of HTN emergency -> chest pain, dyspnea, headache - was on metoprolol for HTN per pt, not currently on any antihypertensives at home - will continue to monitor #LLQ pain/distension - WBCs are slightly elevated, however more consistent with inflammation/ acute reactions vs infectious. Pt is afebrile. Less likely to be diverticulitis and more probable to be related to constipation - Added scheduled miralax daily #Osteoporosis - treatment in the past per endocrinology - will need continued f/u and consider escalation in OP therapy in the setting of compression fracture #History of Pituitary adenoma/Panhypopituitarism - Adrenal insufficiency-> continue home dose hydrocortisone - Hypothyroidism-> continue levothyroxine - Hypogonadism-> continue testosterone Diet: Regular Code: Full VTE Prophylaxis: Hold chemical pending ortho spine Admission and Anticipated Discharge Date Admission Date: November 03, 2024 Supervising Physician Co-Signing Physician Notes I personally examined the patient and verified all olivo points of history and exam, discussed case, and agree with decision making with Dr Land pain doing better but still fairly intense. did get pain radiating to legs when standing. however, notes he was able to transfer to bedside commode easier than before. Vitals noted, in general he is awake and alert pleasant no distress. HEENT normocephalic atraumatic mucous membranes moist. He is laying flat on his back and not moving much. Breathing unlabored no accessory muscle use good effort. Skin without rashes pallor or icterus. Neuro shows no focal deficits. Osteoporotic fractures of L-spine and sacrumhighly doubt these will require any surgical intervention. given radiation to legs when standing will ask spine for opinion. orthotics consult for brace. continue to titrate pain control, PT/OT eval and treat. Assuming no surgical intervention required, anticipate initiating pharmacologic DVT prophylaxis soon. Will need outpatient follow-up with endocrine in regards to his osteoporosis. otherwise as above Subjective Pt is a 88 yo male with PMH of hx of CVA, BPH, pituitary adenoma, and IBS who ws admitted for L2 compression fracture after fall at home. This morning, pt reports continued significant LBP, but better with pain medication. He is also noting abdominal distension, mild nausea, and left lower quadrant pain. He is concerned for acute diverticulitis, as he has had it in the past along with elevated BPs. Pt denies chest pain, SOB, headache, dizziness, vomiting,bowel/bladder incontinence, decreased sensation at LEs Endorses nausea, Weakness at LEs due to pain at his back, blurry vision Review of Systems Review of Systems: As per above Physical Exam Physical Exam: Constitutional: well-appearing, no acute distress HEENT: NCAT, no conjunctival injection CV: regular rhythm, no murmur appreciated, extremities well-perfused, no LE edema Resp: CTABL, no wheezes/rales/rhonchi appreciated, no increased work of breathing GI: soft, mildly distended, mildly tender at LLQ MSK: no gross deformities appreciated Skin: warm, dry, no rash appreciated Neuro: alert, oriented, no focal neurologic deficit appreciated Results & Data Results & Data Vital Signs (Past 12 Hours) Vital Signs Temp Pulse Pulse Pulse Resp BP Pulse Ox 11/04/24 06:45 63 11/04/24 02:22 36.5 C 78 16 132/83 98 11/03/24 23:12 36.7 C 91 H 16 152/94 H 96 11/03/24 20:11 11/03/24 19:33 36.9 C 87 20 186/112 H 97 Pulse Ox O2 Del Method O2 Del Method 11/04/24 06:45 11/04/24 02:22 Room Air 11/03/24 23:12 Room Air 11/03/24 20:11 97 Room Air 11/03/24 19:33 Room Air Resident Activity Tracking Resident Involvement: Resident Care Provided Care Provided: Adult Hospital Medicine
[2024-11-04 07:52] LABS: Hematocrit (blood only) 44.3 % (42.0-52.0); Hemoglobin 15.3 g/dl (14.0-18.0); Mean Corpuscular Hemoglobin 28.3 pg (25.0-34.0); Mean Corpuscular Hgb Conc 34.5 g/dL (32.0-36.0); Mean Platelet Volume 8.6 fL (9.4-12.4); Platelet Count 275 K/uL (130-400); RDW Coefficient of Variation 13.3 % (11.5-14.5); RDW Standard Deviation 39.7 fL (36.4-46.3); White Blood Count 12.08 K/ul (4.8-10.8)
[2024-11-04] MEDS: THIAMINE HCL 100 MG TAB PO SCH (08:00)
[2024-11-04] MEDS: CALCITONIN SALMON NA 200 IU/AC 3.7 ML BTL SCH (08:00)
[2024-11-04] MEDS: TAMSULOSIN HCL 0.4 MG CAP PO SCH (08:00)
[2024-11-04] MEDS: CALCIUM POLYCARBOPHIL 625MG TAB PO SCH (08:00)
[2024-11-04] MEDS: ASPIRIN 81 MG ECTAB PO SCH (08:00)
[2024-11-04] MEDS: LIDOCAINE 5% 1 PATCH TD SCH (08:01)
[2024-11-04 08:18] LABS: BUN Creatinine Ratio 27.8 (10-20); Calcium 9.2 mg/dl (8.6-10.3); Creatinine Clr Calc Pharmacy 72.3 ml/min; Potassium 4.2 mmol/L (3.5-5.1)
[2024-11-04] MEDS ORDERED: HYDROCORTISONE 10 MG TAB PO SCH (09:00)
[2024-11-04] MEDS: POLYETHYLENE (MIRALAX) 17 GM PACK PO SCH (12:39)
[2024-11-04] MEDS: SOMATROPIN SQ SCH (15:07)
--- NOTE | 2024-11-04 18:38 | Billing Data ---
Date of Service November 04, 2024 Coding Level of Care Code 27618 SUB INP/OBS CARE MIN
[2024-11-05 06:37] LABS: Hematocrit (blood only) 42.2 % (42.0-52.0); Hemoglobin 14.8 g/dl (14.0-18.0); Mean Corpuscular Hemoglobin 29.1 pg (25.0-34.0); Mean Corpuscular Hgb Conc 35.1 g/dL (32.0-36.0); Mean Corpuscular Volume 82.9 fL (80.0-100.0); Platelet Count 284 K/uL (130-400); RDW Coefficient of Variation 13.6 % (11.5-14.5); RDW Standard Deviation 40.9 fL (36.4-46.3); Red Blood Count 5.09 M/uL (4.70-6.10); White Blood Count 11.93 K/ul (4.8-10.8)
--- NOTE | 2024-11-05 06:38 | Electrocardiogram Report ---
Test Reason : Blood Pressure : */* mmHG Vent. Rate : 77 BPM Atrial Rate : 77 BPM P-R Int : 164 ms QRS Dur : 82 ms QT Int : 388 ms P-R-T Axes : 78 19 -13 degrees QTcB Int : 439 ms Sinus rhythm with Premature supraventricular complexes Minimal voltage criteria for LVH, may be normal variant ( R in aVL ) Nonspecific T wave abnormality Abnormal ECG When compared with ECG of 17-Jan-2021 10:19, Premature supraventricular complexes are now Present Confirmed by Franklin Nazario ([id number]) on 11/05/2024 6:37:55 AM Referred By: REFERRED SELF Confirmed By: Franklin Nazario
[2024-11-05 07:13] LABS: BUN Creatinine Ratio 30.1 (10-20); Creatinine Clr Calc Pharmacy 68.8 ml/min; Potassium 4.6 mmol/L (3.5-5.1)
--- NOTE | 2024-11-05 07:13 | Hospitalist Progress Note ---
Date of Service November 05, 2024 Assessment & Plan (1) Compression fracture of L2 lumbar vertebra: (2) Sacral insufficiency fracture: (3) Ambulatory dysfunction: (4) Essential hypertension: (5) Osteopenia: (6) Secondary adrenal insufficiency: (7) Pituitary hypothyroidism: (8) Pituitary hypogonadism: Plan 88 year old male presenting with lumbar compression fracture and ambulatory dysfunction. #Compression Fracture L2/Sacral insufficiency fracture/Ambulatory dysfunction - as noted at CT lumbar spine. PT noted LE pain with standing on 11/04. Ortho/spinal surgery consulted. Appreciate recommendations as follows: Compression fracture appears stable on imaging Ordered LSO activity out of bed. Rehab at discharge Follow up with Dr. Coon in outpatient in 2 weeks - Continue lidocaine patch, scheduled Tylenol, morphine 1mg pain 6-8 q4h prn, 2mg pain 9-10 q4h prn - Continue Calcitonin spray - Continue celecoxib 100mg qpm - PT/OT reordered #HTN - BP remains elevated today ranging from 122/78 to 154/81 likely elevated due to pain - without signs of HTN emergency -> chest pain, dyspnea, headache - was on metoprolol for HTN per pt, not currently on any antihypertensives at home - will continue to monitor #LLQ pain/distension - WBCs are slightly elevated, however more consistent with inflammation/ acute reactions vs infectious. Pt is afebrile. Less likely to be diverticulitis and more probable to be related to constipation - Added scheduled miralax daily - Pt brought in fiber pills from home to assist #Osteoporosis - treatment in the past per endocrinology - will need continued f/u and consider escalation in OP therapy in the setting of compression fracture #History of Pituitary adenoma/Panhypopituitarism - Adrenal insufficiency-> continue home dose hydrocortisone - Hypothyroidism-> continue levothyroxine - Hypogonadism-> continue testosterone Diet: Regular Code: Full VTE Prophylaxis: started loevnox Admission and Anticipated Discharge Date Admission Date: November 03, 2024 Supervising Physician Co-Signing Physician Notes I personally examined the patient and verified all olivo points of history and exam, discussed case, and agree with decision making with Dr Land pain improving. brace helps. amenable to rehab. Vitals noted, in general he is awake and alert pleasant no distress. HEENT normocephalic atraumatic mucous membranes moist. sitting up looking more comfortable. Breathing unlabored no accessory muscle use good effort. Skin without rashes pallor or icterus. Neuro shows no focal deficits. Osteoporotic fractures of L-spine and sacrumdid have radicular sx but fortuntately nonsurgical appreciate spine input. brace helping. continue multimodal pain control, PT/OT eval and treat. start lovenox for DVT proph. Will need outpatient follow-up with endocrine in regards to his osteoporosis. otherwise as above Subjective Pt is a 88 yo male with PMH of hx of CVA, BPH, pituitary adenoma, and IBS who was admitted for L2 compression fracture after fall at home. This morning,pt reports he continues with pain at his low back with movement. He has not had a bowel movement. Pt denies chest pain, SOB, headache, dizziness, vomiting,bowel/bladder incontinence, decreased sensation at LEs Review of Systems Review of Systems: As per above Physical Exam Physical Exam: Constitutional: well-appearing, laying on his left side, no acute distress HEENT: NCAT, no conjunctival injection CV: regular rhythm, no murmur appreciated, extremities well-perfused, no LE edema Resp: CTABL, no wheezes/rales/rhonchi appreciated, no increased work of breathing GI: soft, mildly distended, mildly tender at LLQ MSK: no gross deformities appreciated Skin: warm, dry, no rash appreciated Neuro: alert, oriented, no focal neurologic deficit appreciated Results & Data Results & Data Vital Signs (Past 12 Hours) Vital Signs Temp Pulse Pulse Resp BP Pulse Ox O2 Del Method 11/05/24 03:58 36.3 C L 62 20 154/81 H 98 Room Air 11/04/24 23:38 36.3 C L 60 20 142/71 H 98 Room Air 11/04/24 21:46 58 L 11/04/24 19:58 36.4 C L 62 20 120/68 96 Room Air Resident Activity Tracking Resident Involvement: Resident Care Provided Care Provided: Adult Hospital Medicine (1) Compression fracture of L2 lumbar vertebra Encounter type: initial encounter Qualified Code(s): S32.020A - Wedge compression fracture of second lumbar vertebra, initial encounter for closed fracture (2) Sacral insufficiency fracture Encounter type: initial encounter Qualified Code(s): M84.48XA - Pathological fracture, other site, initial encounter for fracture
--- NOTE | 2024-11-05 10:21 | Consultation ---
Date of Consultation November 05, 2024 Assessment & Plan (1) Compression fracture of L2 lumbar vertebra: Dr. Coon has reviewed imaging and treatment plan. Treatment is conservative. I have ordered an LSO brace to be worn with standing and ambulation. May remove when in a seated position and lying down. He may ultimately need a rehab facility upon discharge. Continue with pain control. Ambulate ad jasmin with the assistance of the walker due to his sacral insufficiency fractures. He is weight-bear as tolerated. He can follow-up in our office in 2 weeks. History of Present Illness Reason for Consultation: L2 compression fracture, sacral insufficiency fractures status post fall Attending Physician: Cesar Jhaveri, DO History of Present Illness Humphrey is an 88-year-old gentleman who sustained a fall last week at home landing on his sleep floor. He attributes this to a change in his medications which causes hypotension event. He has back pain that radiates down his left leg. He lives in a shared apartment but for the most part independent. Typically ambulates independent at home. Allergies Allergy/AdvReac Type Severity Reaction Status Date / Time gabapentin [From Neurontin] Allergy Intermediate "felt like Verified 11/03/24 1 5:52 a zombie" Iodinated Contrast Media Allergy Intermediate INTENSE Verified 11/03/24 15:52 HIVES/ITCHING lactose Allergy Intermediate Gastrointestinal Verified 11/03/24 15:52 Upset Home Medications Medication Instructions Recorded Confirmed Type cholecalciferol (vitamin D3) 25 1,000 units PO BID 05/28/19 11/03/24 History mcg (1,000 unit) capsule omega-3 fatty acids 1,000 mg 1,000 mg PO QPM 05/28/19 11/03/24 History capsule thiamine HCl (vitamin B1) 100 mg 100 mg PO QAM 09/29/21 11/03/24 History tablet CBD cream 1 dose topical UD PRN Pain 07/17/23 11/03/24 History Medical Marijuana 1 dose PO DIRECTED 10/22/23 11/03/24 History ibandronate 150 mg tablet 150 mg PO Q30D #3 tabs 01/08/24 11/03/24 Rx somatropin 5 mg/1.5 mL (3.3 mg/mL) 0.2 mg (0.06 mL) subcut DAILY 90 01/11/24 11/03/24 Rx subcutaneous pen injector days #6 mL (Norditropin FlexPro) levothyroxine 112 mcg tablet 112 mcg PO QAM #90 tabs 07/09/24 11/03/24 Rx tamsulosin 0.4 mg capsule 0.4 mg PO QAM #90 caps 08/08/24 11/03/24 Rx hydrocortisone 10 mg tablet See Rx Instructions .Route 08/18/24 11/03/24 Rx .COMPLEX #405 tabs testosterone 1 % (50 mg/5 gram) 1 packet transdermal DAILY #450 10/08/24 11/03/24 Rx transdermal gel packet grams celecoxib 100 mg capsule (Celebrex) 100 mg PO QPM #90 caps 10/31/24 11/03/24 Rx aspirin 81 mg tablet,delayed 81 mg PO DAILY 11/03/24 11/03/24 History release psyllium husk 0.52 gram capsule 1.56 g PO DAILY 11/03/24 11/03/24 History (Fiber-Caps (psyllium husk)) vit C 250 mg-vit E 90 mg-zinc 40 1 tab PO BID 11/03/24 11/03/24 History mg-copper 1 qz-wdakol-vaxfjl capsule (PreserVision AREDS-2) Patient History Medical History Left ear impacted cerumen BPH (benign prostatic hyperplasia) IBS (irritable bowel syndrome) Growth hormone insufficiency Macular degeneration TMJ (temporomandibular joint disorder) gets pain in left side from time to time, hasn't locked Family history of colon cancer in mother Post herpetic neuralgia History of shingles 2018, covered whole left side of scalp and part of eye/face Bloating Hx of gout Tooth abscess resolved Kidney stones passed on own Diverticular disease Sciatica, unspecified side Surgical History History of open reduction and internal fixation (ORIF) procedure rt. femur History of cataract surgery left/right History of esophagogastroduodenoscopy (EGD) History of colonoscopy History of tooth extraction 1 abscessed molar removed History of tonsillectomy H/O partial hypophysectomy Family History Father Aneurysm Cerebrovascular disease Hypertension Mother Colorectal cancer Denies family history of Ovarian cancer Prostate cancer Myocardial infarction Breast cancer Social History Smoking Status: Never smoker Tobacco Type: Cigarettes Second Hand Exposure: No; Do You Dip or Chew Tobacco: No; Hx Alcohol Use: Yes Alcohol type: beer and wine Hx Substance Use: Yes (Medical Marijuana) Last Used Substance: Unknown Last Used Substance Other:: almost every daily Substance Use Type Other:: medical card > flower buds > uses prn Preferred Language: Yi Communication Ability: Effective Flight Steward Required: No Beliefs That Will Affect Care: None marital status: Single Current Living Situation: Alone current occupational status: retired Feels Safe at Home: Yes Childhood Exposure to Second-Hand Smoke: Yes Dental Care, Regularly: Yes Physical Activity Frequency: 1-2 Times per Week Seatbelt Use: always Sunscreen Use: No Assistive Devices: Glasses and Walker Review of Systems Review of Systems: All systems reviewed & are unremarkable except as noted in HPI & below Physical Exam Physical Exam: He is alert and oriented x 3 he is laying in bed in no acute distress Tenderness midline mid lumbar region as well as over the bilateral sciatic notch regions. Strength is intact bilateral lower extremities Results & Data Vital Signs (Past 12 Hours) Vital Signs Temp Pulse Pulse Pulse Resp BP Pulse Ox 11/05/24 07:50 36.5 C 68 16 138/88 98 11/05/24 06:45 52 L 11/05/24 03:58 36.3 C L 62 20 154/81 H 98 11/04/24 23:38 36.3 C L 60 20 142/71 H 98 O2 Del Method 11/05/24 07:50 Room Air 11/05/24 06:45 11/05/24 03:58 Room Air 11/04/24 23:38 Room Air [phone] Scan Report Patient: HUMPHREY CESPEDES Admit Date: 11/03/24 MR#: [id number] Address1: [facility] [place] Acct ID:[id number] Address2: Date: 1935 [facility] Zip: [place] [address] Age: 88 Location: ED Sex: M Room/Bed: Att Phy: Diagnosis: LOWER BACK PAIN, FALL Blanca Phy: RV. Huddleston MD Service Date: 11/03/24 [facility] Phy: Interpreting Phy: Robb Reid MDAdmit Phy: Ordering Phy: Arturo Klein MD cc: ~ CT lumbar spine wo con CLINICAL HISTORY: Back Pain s/p fall, midline COMPARISON STUDY: Lumbar spine radiographs January 13, 2004 18 and September 08, 2021. CT of the abdomen and pelvis January 17, 2021. TECHNIQUE: Axial images of the lumbar spine were obtained without IV contrast. Sagittal and coronal reformats were viewed. Automated exposure control was utilized for the study. A dose lowering technique was utilized adhering to the principles of ALARA. FINDINGS: For purposes of numbering on this exam, the L5-S1 disc space is assigned to axial image 352 of 418. L4 compression fracture with 50% loss of vertebral body height is new since prior radiographs of September 08, 2021 but is chronic appearing. There is an acute appearing compression fracture along the inferior endplate of L2 with mild concavity which results in 30% loss of vertebral body height. Acute to subacute bilateral sacral ala fractures are present. There is minimal presacral stranding. Severe facet arthrosis is noted at multiple levels within the lumbar spine. Moderate multilevel degenerative disc disease is most advanced at the L5-S1 level. No suspicious osseous lesions. Bilateral adrenal nodules are unchanged. These are benign. IMPRESSION: 1. Acute compression fracture along the inferior endplate of L2 which extends to the anterior cortex with 30% loss of vertebral body height. 2. Acute to subacute bilateral sacral ala insufficiency fractures. 3. L4 compression fracture which is new since radiographs of September 08, 2021 but likely chronic. 4. Moderate multilevel degenerative disc disease and facet arthrosis within the lumbar spine. ACT 112: Negative or not required by law. Electronically signed by: Robb Reid M.D. 11/03/2024 12:24 PM Dictated: 11/03/24 1218 Transcribed: 11/03/24 1218 (1) Compression fracture of L2 lumbar vertebra Encounter type: initial encounter Qualified Code(s): S32.020A - Wedge compression fracture of second lumbar vertebra, initial encounter for closed fracture
[2024-11-05] MEDS ORDERED: NON-FORMULARY PATIENT'S OWN MED SCH (12:45)
[2024-11-05] MEDS: SOMATROPIN SQ SCH (13:59)
[2024-11-05] MEDS: ENOXAPARIN INJ 40 MG/0.4 ML SYR SQ SCH (13:59)
[2024-11-05] MEDS: METHYLCELLULOSE POWDER 454 GM JAR PO SCH (15:43)
--- NOTE | 2024-11-05 18:29 | Billing Data ---
Date of Service November 05, 2024 Coding Level of Care Code 99189 SUB INP/OBS CARE MIN
--- NOTE | 2024-11-05 18:29 | Billing Data ---
Date of Service November 05, 2024 Coding Level of Care Code 49049 SUB INP/OBS CARE MIN
--- NOTE | 2024-11-06 07:35 | Hospitalist Progress Note ---
Date of Service November 06, 2024 Assessment & Plan (1) Compression fracture of L2 lumbar vertebra: (2) Sacral insufficiency fracture: (3) Ambulatory dysfunction: (4) Essential hypertension: (5) Osteopenia: (6) Secondary adrenal insufficiency: (7) Pituitary hypothyroidism: (8) Pituitary hypogonadism: Plan 88 year old male presenting with lumbar compression fracture and ambulatory dysfunction. #Compression Fracture L2/Sacral insufficiency fracture/Ambulatory dysfunction - as noted at CT lumbar spine. PT noted LE pain with standing on 11/04. Ortho/spinal surgery consulted. Appreciate recommendations as follows: Compression fracture appears stable on imaging Using LSO activity out of bed. Rehab at discharge Follow up with Dr. Coon in outpatient in 2 weeks - Continue lidocaine patch, scheduled Tylenol, morphine 1mg pain 6-8 q4h prn, 2mg pain 9-10 q4h prn - Continue Calcitonin spray - Continue celecoxib 100mg qpm - Continue working with PT/OT Recommending short stay at inpatient rehab #HTN - BP remains elevated today ranging from 122/78 to 154/81 likely elevated due to pain - without signs of HTN emergency -> chest pain, dyspnea, headache - was on metoprolol for HTN per pt, not currently on any antihypertensives at home - will continue to monitor #LLQ pain/distension - WBCs are slightly elevated, however more consistent with inflammation/ acute reactions vs infectious. Pt is afebrile. Less likely to be diverticulitis and more probable to be related to constipation - Ordered Fleet enema - Continue scheduled miralax daily - Continue Citracal - Added pantoprazole 40mg qam - Added zofran 4mg PRN q6h #Osteoporosis - treatment in the past per endocrinology - will need continued f/u and consider escalation in OP therapy in the setting of compression fracture #History of Pituitary adenoma/Panhypopituitarism - Adrenal insufficiency-> continue home dose hydrocortisone - Hypothyroidism-> continue levothyroxine - Hypogonadism-> continue testosterone Diet: Regular Code: Full VTE Prophylaxis: Lovenox Admission and Anticipated Discharge Date Admission Date: November 03, 2024 Supervising Physician Co-Signing Physician Notes I personally examined the patient and verified all olivo points of history and exam, discussed case, and agree with decision making with Dr Land did have moderate BM but also nausea and vomiting some. Vitals noted, in general he is awake and alert pleasant but nauseated - cough/vomits some mucous when i see him. HEENT normocephalic atraumatic mucous membranes moist. sitting up looking more comfortable. Breathing unlabored no accessory muscle use good effort. Skin without rashes pallor or icterus. Neuro shows no focal deficits. abd soft but mod distended nontender no guarding/rebound/rigidity Osteoporotic fractures of L-spine and sacrumdid have radicular sx but fortuntately nonsurgical appreciate spine input. brace helping. continue multimodal pain control, PT/OT eval and treat. start lovenox for DVT proph. Will need outpatient follow-up with endocrine in regards to his osteoporosis. abdominal pain/nausea/vomiting - likely all symptomatic constipation - did at least get bowels moving some today but likely not enough for how constipated he was. ongoing bowel regimen, zofran prn. add pepcid, increase protonix to bid otherwise as above Subjective Pt is a 88 yo male with PMH of hx of CVA, BPH, pituitary adenoma, and IBS who was admitted for L2 compression fracture after fall at home. This morning, pt reports he continues with pain at his low back with movement. He has not had a bowel movement despite miralax and Citracal and requesting an enema. Pt is agreeable to short stay at inpatient rehab. Pt denies chest pain, SOB, headache, dizziness, vomiting, bowel/bladder incontinence, decreased sensation at LEs Review of Systems Review of Systems: As per above Physical Exam Physical Exam: Constitutional: well-appearing, laying on his left side, no acute distress HEENT: NCAT, no conjunctival injection CV: regular rhythm, no murmur appreciated, extremities well-perfused, no LE edema Resp: CTABL, no wheezes/rales/rhonchi appreciated, no increased work of breathing GI: soft, mildly distended, mildly tender at LLQ MSK: no gross deformities appreciated Skin: warm, dry, no rash appreciated Neuro: alert, oriented, no focal neurologic deficit appreciated Results & Data Results & Data Vital Signs (Past 12 Hours) Vital Signs Temp Pulse Pulse Resp BP Pulse Ox O2 Del Method 11/06/24 04:00 36.4 C L 83 20 181/95 H 93 Room Air 11/05/24 23:16 36.5 C 69 20 127/78 97 Room Air 11/05/24 21:46 62 11/05/24 19:59 36.5 C 61 18 122/68 93 Room Air Resident Activity Tracking Resident Involvement: Resident Care Provided Care Provided: Adult Hospital Medicine (1) Compression fracture of L2 lumbar vertebra Encounter type: initial encounter Qualified Code(s): S32.020A - Wedge compression fracture of second lumbar vertebra, initial encounter for closed fracture (2) Sacral insufficiency fracture Encounter type: initial encounter Qualified Code(s): M84.48XA - Pathological fracture, other site, initial encounter for fracture
[2024-11-06 08:17] LABS: Hematocrit (blood only) 41.1 % (42.0-52.0); Hemoglobin 14.1 g/dl (14.0-18.0); Mean Corpuscular Hemoglobin 28.6 pg (25.0-34.0); Mean Corpuscular Hgb Conc 34.3 g/dL (32.0-36.0); Mean Corpuscular Volume 83.4 fL (80.0-100.0); Platelet Count 293 K/uL (130-400); RDW Coefficient of Variation 13.6 % (11.5-14.5); RDW Standard Deviation 41.5 fL (36.4-46.3); Red Blood Count 4.93 M/uL (4.70-6.10)
[2024-11-06 08:36] LABS: BUN Creatinine Ratio 30.1 (10-20); Creatinine Clr Calc Pharmacy 68.8 ml/min; Potassium 4.1 mmol/L (3.5-5.1)
[2024-11-06] MEDS: SOD PHOSPHATE/SOD BIPHOSPHATE ENEMA 132 ML BTL PR STA (09:51)
[2024-11-06] MEDS: PANTOprazole 40 MG TAB PO SCH ×2 (15:48→20:52)
--- NOTE | 2024-11-06 17:47 | Billing Data ---
Date of Service November 06, 2024 Coding Level of Care Code 05238 SUB INP/OBS CARE MIN
[2024-11-06] MEDS: ONDANSETRON 4 MG OD TAB PO PRN (20:56)
[2024-11-06] MEDS: MoRPHine SULFATE 2 MG/ML CARP IV PRN (20:56)
[2024-11-06] MEDS: FAMOTIDINE 20 MG TAB PO SCH (20:59)
--- NOTE | 2024-11-07 06:58 | Hospitalist Progress Note ---
Date of Service November 07, 2024 Assessment & Plan (1) Compression fracture of L2 lumbar vertebra: (2) Sacral insufficiency fracture: (3) Ambulatory dysfunction: (4) Essential hypertension: (5) Osteopenia: (6) Secondary adrenal insufficiency: (7) Pituitary hypothyroidism: (8) Pituitary hypogonadism: Plan 88 year old male presenting with lumbar compression fracture and ambulatory dysfunction. Pt having better pain control and relief of constipation/GI upset #Compression Fracture L2/Sacral insufficiency fracture/Ambulatory dysfunction - as noted at CT lumbar spine. PT noted LE pain with standing on 11/04. Ortho/spinal surgery consulted. Appreciate recommendations as follows: Compression fracture appears stable on imaging Using LSO activity out of bed. Rehab at discharge Follow up with Dr. Coon in outpatient in 2 weeks - Continue lidocaine patch, scheduled Tylenol, morphine 1mg pain 6-8 q4h prn, 2mg pain 9-10 q4h prn - Continue Calcitonin spray - Continue celecoxib 100mg qpm - Continue working with PT/OT Recommending short stay at inpatient rehab CM has request in at [facility] (insurance has denied) and [facility] has accepted on 11/06, awaiting insurance authorization. #HTN - BP remains elevated today ranging from 135/74 to 180/94 likely elevated due to pain and stress - without signs of HTN emergency -> chest pain, dyspnea, headache - was on metoprolol for HTN per pt, not currently on any antihypertensives at home - will continue to monitor #LLQ pain/distension Pt had 2 medium size bowel movements 11/06 - WBCs have returned to normal range. - Continue scheduled miralax daily - Continue Citracal - Continue pantoprazole 40mg BID - Continue Famotadine 20mg BID - Continue zofran 4mg PRN q6h #Osteoporosis - treatment in the past per endocrinology - will need continued f/u and consider escalation in OP therapy in the setting of compression fracture #History of Pituitary adenoma/Panhypopituitarism - Adrenal insufficiency-> continue home dose hydrocortisone - Hypothyroidism-> continue levothyroxine - Hypogonadism-> continue testosterone Diet: Regular Code: Full VTE Prophylaxis: Lovenox Admission and Anticipated Discharge Date Admission Date: November 03, 2024 Supervising Physician Co-Signing Physician Notes I personally examined the patient and verified all olivo points of history and exam, discussed case, and agree with decision making with Dr Land stomach feeling better eating better pain better controlled. insurance denied rehab and did not even really allow dr land the time to explain why rehab would be a good option for this patient, unfortunately proving this particular peer to peer to be a total farce where the insurance company clearly had their decision to deny already made and would not let anything even really be said to sway their decision. vitals noted nad heent nc at mmm breathing unlabored no accessory muscles good effort skin no rashes no pallor or icterus neuro no focal deficits. Osteoporotic fractures of L-spine and sacrumdid have radicular sx but fortunately nonsurgical appreciate spine input. brace helping. continue multimodal pain control, PT/OT eval and treat. start lovenox for DVT proph. Will need outpatient follow-up with endocrine in regards to his osteoporosis. abdominal pain/nausea/vomiting - likely all symptomatic constipation - improving otherwise as above, since insurance denied rehab (and would not even really listen to the valid reasons why rehab would be a good choice for him) he will be stable for SNF when bed available Subjective Pt is a 88 yo male with PMH of hx of CVA, BPH, pituitary adenoma, and IBS who was admitted for L2 compression fracture after fall at home. This morning, pt reports he continues with pain at his low back with movement, however he is more comfortable in upright seated position and with transfers. He notes his abdomen in less uncomfortable. He has not had another BM. He would like to trial without enema today and use miralax and citracel. Pt denies chest pain, SOB, headache, dizziness, vomiting, bowel/bladder incontinence, decreased sensation at LEs Review of Systems Review of Systems: As per above Physical Exam Physical Exam: Constitutional: well-appearing, in upright position eating breakfast, no acute distress HEENT: NCAT, no conjunctival injection CV: regular rhythm, no murmur appreciated, extremities well-perfused, no LE edema Resp: CTAB, no wheezes/rales/rhonchi appreciated, no increased work of breathing GI: soft, mildly distended, mildly tender at LLQ MSK: no gross deformities appreciated Skin: warm, dry, no rash appreciated Neuro: alert, oriented, no focal neurologic deficit appreciated Results & Data Results & Data Vital Signs (Past 12 Hours) Vital Signs Temp Pulse Pulse Resp BP Pulse Ox O2 Del Method 11/07/24 03:54 36.5 C 61 20 142/85 H 97 Room Air 11/07/24 01:21 53 L 11/06/24 23:49 36.5 C 57 L 20 145/83 H 96 Room Air 11/06/24 20:00 36.5 C 71 20 133/79 95 Room Air Resident Activity Tracking Resident Involvement: Resident Care Provided Care Provided: Adult Hospital Medicine (1) Compression fracture of L2 lumbar vertebra Encounter type: initial encounter Qualified Code(s): S32.020A - Wedge compression fracture of second lumbar vertebra, initial encounter for closed f racture (2) Sacral insufficiency fracture Encounter type: initial encounter Qualified Code(s): M84.48XA - Pathological fracture, other site, initial encounter for fracture
[2024-11-07] MEDS: TESTOSTERONE GEL TOP SCH (09:12)
--- NOTE | 2024-11-07 18:15 | Billing Data ---
Date of Service November 07, 2024 Coding Level of Care Code 47305 SUB INP/OBS CARE
[2024-11-08 07:16] LABS: Creatinine Clr Calc Pharmacy 64.2 ml/min
--- NOTE | 2024-11-08 09:44 | Hospitalist Progress Note ---
Date of Service November 08, 2024 Assessment & Plan (1) Compression fracture of L2 lumbar vertebra: (2) Sacral insufficiency fracture: (3) Ambulatory dysfunction: (4) Essential hypertension: (5) Osteopenia: (6) Secondary adrenal insufficiency: (7) Pituitary hypothyroidism: (8) Pituitary hypogonadism: Plan 88 year old male presenting with lumbar compression fracture and ambulatory dysfunction. Pt having better pain control and relief of constipation/GI upset #Compression Fracture L2/Sacral insufficiency fracture/Ambulatory dysfunction - as noted at CT lumbar spine. PT noted LE pain with standing on 11/04. Ortho/spinal surgery consulted. Appreciate recommendations as follows: Compression fracture appears stable on imaging Using LSO activity out of bed. Rehab at discharge Follow up with Dr. Coon in outpatient in 2 weeks - Continue lidocaine patch, scheduled Tylenol, morphine 1mg pain 6-8 q4h prn, 2mg pain 9-10 q4h prn - Continue Calcitonin spray - Continue celecoxib 100mg qpm - Continue working with PT/OT Recommending short stay at inpatient rehab CM has request in at [facility] (insurance has denied) and [facility] has accepted on 11/06 - Bed available at [facility]: plan for transfer 11/09 #HTN - BP remains elevated today ranging from 135/74 to 180/94 likely elevated due to pain and stress - without signs of HTN emergency -> chest pain, dyspnea, headache - was on metoprolol for HTN per pt, not currently on any antihypertensives at home - will continue to monitor #LLQ pain/distension/constipation Pt had 2 medium size bowel movements 11/06 - WBCs have returned to normal range. - Continue scheduled miralax daily - Continue Citracal - Continue pantoprazole 40mg BID - Continue Famotadine 20mg BID - Continue zofran 4mg PRN q6h #Osteoporosis - treatment in the past per endocrinology - will need continued f/u and consider escalation in OP therapy in the setting of compression fracture #History of Pituitary adenoma/Panhypopituitarism - Adrenal insufficiency-> continue home dose hydrocortisone - Hypothyroidism-> continue levothyroxine - Hypogonadism-> continue testosterone Diet: Regular Code: Full VTE Prophylaxis: Lovenox Admission and Anticipated Discharge Date Admission Date: November 03, 2024 Supervising Physician Co-Signing Physician Notes I personally examined the patient and verified all olivo points of history and exam, discussed case, and agree with decision making with Dr Varner stomach a little upset no BM since day before yesterday. anxious about SNF. vitals noted nad heent nc at mmm breathing unlabored no accessory muscles good effort skin no rashes no pallor or icterus neuro no focal deficits. Osteoporotic fractures of L-spine and sacrumdid have radicular sx but fortunately nonsurgical appreciate spine input. brace helping. continue multimodal pain control, PT/OT eval and treat. lovenox for DVT proph. Will need outpatient follow-up with endocrine in regards to his osteoporosis. abdominal pain/nausea/vomiting - likely all symptomatic constipation - improving overall sl worse today increase bowel regimen otherwise as above, for SNF tomorrow. extensive discussions w pt on what to expect with transfer and care at SNF, as well as rationale for going sooner rather than later as it relates to deconditioning/ability to get back to functional independence, etc. Subjective Evan Pinto is seen resting comfortably at bedside. Patient is not in acute distress and is hemodynamically stable. Patient is AxO3. Evan does mention some lower abdominal pain and constipation that has been going on for a couple of days. This morning he has taken miralax and prune juice to help stimulate a bowel regimen and is reassured that additional medication vs enema can be attempted if he does not have a BM by this afternoon. Patient's low back pain has been well controlled with Tylenol and lidocaine patches without the need for frequent PRN morphine doses. Patient does still feel weak and mentions that he was able to walk with his walker to his room door and then back to bed but quickly became exhausted. Patient will likely be d/c tomorrow to [facility] for rehab. Physical Exam Physical Exam: General: patient resting comfortably, NAD, non-toxic in appearance, answers questions appropriately. Skin: warm, dry, intact HEENT: NC/AT, anicteric sclera, conjunctiva without injection, moist mucus membranes. Heart: +S1/S2, regular, no m/r/g Lungs: equal air entry bilaterally, no rales/rhonchi/wheezes Abd: +BS, soft, NT/ND Ext: warm, no clubbing/cyanosis or edema Neuro: nonfocal, speech intact, no facial droop, moving all extremities. Results & Data Results & Data Vital Signs (Past 12 Hours) Vital Signs Temp Pulse Pulse Resp BP Pulse Ox O2 Del Method 11/08/24 07:49 36.8 C 55 L 16 180/90 H 98 Room Air 11/08/24 07:10 63 11/08/24 04:00 36.6 C 61 18 135/85 98 Room Air 11/07/24 22:52 36.4 C L 58 L 20 128/80 97 Room Air 11/07/24 21:57 56 L Resident Activity Tracking Resident Involvement: Resident Care Provided Care Provided: Adult Hospital Medicine (1) Compression fracture of L2 lumbar vertebra Encounter type: initial encounter Qualified Code(s): S32.020A - Wedge compression fracture of second lumbar vertebra, initial encounter for closed fracture (2) Sacral insufficiency fracture Encounter type: initial encounter Qualified Code(s): M84.48XA - Pathological fracture, other site, initial encounter for fracture
--- NOTE | 2024-11-08 14:30 | Billing Data ---
Date of Service November 08, 2024 Coding Level of Care Code 89083 SUB INP/OBS CARE 3MIN
[2024-11-09 03:36] VITALS: TEMP 97.5; O2SAT 98
[2024-11-09 07:53] VITALS: PULSE 65; RESP 16
--- NOTE | 2024-11-09 10:08 | Discharge Summary ---
Date of Service November 09, 2024 Admission HPI Per Admitting Provider 88 year old male with a past medical history of Pituitary neoplasm/panhypopituitarism, osteoporosis, BPH, peripheral neuropathy presenting with back pain after fall. Was started on Cymbalta by neurology for peripheral n europathy 10/23/24. States that 4 days ago he felt that his blood pressure was low after taking Cymbalta, feel from standing to ground. Acute low back pain since then, has been having trouble getting out of bed. Denies bowel/bladder incontinence, weakness, saddle anesthesia. Best friend is in room with him, they give 1 floor apart in apartment complex. ED course significant for: CBC, CMP unremarkable, CK= 333. CT lumbar spine with acute compression fracture L2, acute/subacute B/L sacral ala insufficiency fracture, chronic L4 compression fracture, multi degenerative disc disease. Hypertensive BP= 200s/100s S/p 125mg methylprednisone, 2mg morphine, lidocaine patch, Tylenol 1000mg, 10mg labetalol Admission Exam Per Admitting Provider Constitutional: well-appearing, no acute distress HEENT: NCAT, no conjunctival injection CV: regular rhythm, no murmur appreciated, extremities well-perfused, no LE edema Resp: CTABL, no wheezes/rales/rhonchi appreciated, no increased work of breathing GI: soft, nondistended, nontender MSK: no gross deformities appreciated, strength 5/5 LE B/L Skin: warm, dry, no rash appreciated Neuro: alert, oriented, no focal neurologic deficit appreciated Principal Diagnosis L2 compression fracture/ambulatory dysfunction Discharge Exam General: patient resting comfortably, NAD, non-toxic in appearance, answers questions appropriately. Skin: warm, dry, intact HEENT: NC/AT, anicteric sclera, conjunctiva without injection, moist mucus membranes. Heart: +S1/S2, regular, no m/r/g Lungs: equal air entry bilaterally, no rales/rhonchi/wheezes Abd: +BS, soft, NT/ND Ext: warm, no clubbing/cyanosis or edema Neuro: nonfocal, speech intact, no facial droop, moving all extremities. Discharge Data Allergies Allergy/AdvReac Type Severity Reaction Status Date / Time gabapentin [From Neurontin] Allergy Intermediate "felt like Verified 11/03/24 15:52 a zombie" Iodinated Contrast Media Allergy Intermediate INTENSE Verified 11/03/24 15:52 HIVES/ITCHING lactose Allergy Intermediate Gastrointestinal Verified 11/03/24 15:52 Upset Consultations 11/04/24 17:21 Consult Orthopedic Spine Surgery Routine Ordered Studies 11/03/24 11:53 CT lumbar spine wo con Stat Hospital Course (1) Compression fracture of L2 lumbar vertebra: (2) Sacral insufficiency fracture: (3) Ambulatory dysfunction: (4) Essential hypertension: (5) Osteopenia: (6) Secondary adrenal insufficiency: (7) Pituitary hypothyroidism: (8) Pituitary hypogonadism: Plan 88 year old male presenting with lumbar compression fracture and ambulatory dysfunction. Pt having better pain control and relief of constipation/GI upset #Compression Fracture L2/Sacral insufficiency fracture/Ambulatory dysfunction - as noted at CT lumbar spine. PT noted LE pain with standing on 11/04. Ortho/spinal surgery consulted. Appreciate recommendations as follows: Compression fracture appears stable on imaging Using LSO activity out of bed. Rehab at discharge Follow up with Dr. Coon in outpatient in 2 weeks - Continue lidocaine patch, scheduled Tylenol, morphine 1mg pain 6-8 q4h prn, 2mg pain 9-10 q4h prn - Continue Calcitonin spray - Continue celecoxib 100mg qpm - Continue working with PT/OT Recommending short stay at inpatient rehab CM has request in at [facility] (insurance has denied) and [facility] has accepted on 11/06 - Bed available at [facility]: plan for transfer 11/09 #HTN - BP remains elevated today ranging from 135/74 to 180/94 likely elevated due to pain and stress - without signs of HTN emergency -> chest pain, dyspnea, headache - was on metoprolol for HTN per pt, not currently on any antihypertensives at home - will continue to monitor #LLQ pain/distension/constipation Pt had 2 medium size bowel movements 11/06 - WBCs have returned to normal range. - Continue scheduled miralax daily - Continue Citracal - Continue pantoprazole 40mg BID - Continue Famotadine 20mg BID - Continue zofran 4mg PRN q6h #Osteoporosis - treatment in the past per endocrinology - will need continued f/u and consider escalation in OP therapy in the setting of compression fracture #History of Pituitary adenoma/Panhypopituitarism - Adrenal insufficiency-> continue home dose hydrocortisone - Hypothyroidism-> continue levothyroxine - Hypogonadism-> continue testosterone Diet: Regular Code: Full VTE Prophylaxis: Lovenox Total Time Total Time Spent Total Time Spent (In Minutes): See attending attestation Discharge Plan Discharge Items Patient Disposition: Transfer Nursing Home Fac Reason For Visit: COMPRESSION FRACTURE Discharge Diagnosis: L2/L4 compression fracture/ambulatory dysfunction Activity: Per Instructions section Non-emergency contact: Primary Care Provider Call non-emergency contact if: your symptoms worsen and your pain is not controlled Follow-up/Referrals: Hank Peterson MD [Primary Care Provider] - Diet: Regular Addtl Attending Provider Instructions: You were admitted to the hospital for low back pain and difficulty walking. While admitted you were found to have a L2 compression fracture, which is a small broken segment of bone that encases your spinal cord in your back. Imaging of your back was completed and the orthopedics team was consulted to determine the need for surgery versus conservative management. It was decided that conservative management would be safer and more likely to help you recover and thus an LSO brace was ordered to help brace your back while standing upright and walking, and a walker was used. Although healing well you have had difficulty traversing longer distances and explained that you became quickly exhausted after using your walker and traveling short distances around your room. Due to this continued weakness it is important that you are transferred to a rehabilitation facility to further improve your muscle strength and ambulation. A discharge summary will be sent to your primary care physician to ensure continuity of care. Please bring this discharge summary with you to your next office appointment so that your provider can review it at that time. Follow-up: After your inpatient rehabilitation stay please follow-up with your PCP within 1 week from discharge [facility] Orthopedics will reach out to set up an appointment following discharge in approximately 2 weeks. If you are not contacted in the following week to schedule this appointment, please contact and ask to schedule a hospital follow-up appointment Medications: Your medication list has been reviewed and reconciled upon discharge to ensure accuracy and continuity of care. An updated list of all your medications is included with your hospital discharge paperwork. Please review this list closely, and make note of any changes. Take your medications as instructed; do not skip a dose of your medicines. Make sure all of your doctors know every medicine you are taking (including [id number] medicines, vitamins, and supplements). Call your primary care provider before taking any new medicines (including [id number] medicines, vitamins, and supplements), because some of these may interact with your current medications, or may make your symptoms worse. Tell your primary care provider if you cannot afford your medications. CONTACT YOUR PRIMARY CARE PROVIDER if you experience any of the following: Difficulty following your treatment plan, or difficulty taking medications CALL 911 OR GO TO THE EMERGENCY DEPARTMENT if you experience any of the following: Sudden, severe abdominal pain or nausea/vomiting Severe chest pain, or chest pain that radiates (moves) to your jaw or arm Sudden, severe shortness of breath or difficulty breathing Thank you for allowing us to participate in your care. Pending Studies at Discharge: No Stand-Alone Forms: My [facility] Skilled Items Patient informed of condition?: Yes DNR: No Discharge Level of Care: Skilled Communicable Disease: No Discharge Prognosis: Improving Lines: None Urinary Catheter: No Medications and DC Order Prescriptions: Continued CBD cream cream 1 dose topical UD PRN (Reason: Pain) ibandronate 150 mg tablet 150 mg PO Q30D Qty: 3 3RF Rx Instructions: 150 mg PO once a month; Norditropin FlexPro 5 mg/1.5 mL (3.3 mg/mL) pen injector 0.2 mg subcut DAILY 90 Days Qty: 6 3RF levothyroxine 112 mcg tablet 112 mcg PO QAM Qty: 90 1RF tamsulosin 0.4 mg capsule 0.4 mg PO QAM Qty: 90 1RF hydrocortisone 10 mg tablet See Rx Instructions .ROUTE .COMPLEX Qty: 405 3RF Rx Instructions: Take 15mg in the am and 10mg in the pm, needs to double doses in times of stress. On the morning of 11/03/24 pt took 20mg. testosterone 1 % (50 mg/5 gram) gel in packet 1 packet transdermal DAILY Qty: 450 1RF Rx Instructions: Pt states that he doesn't use the entire packet, just a little bit as it enlarges his prostate when he uses the entire packet. He has spoken with his PCP about this. celecoxib [Celebrex] 100 mg capsule 100 mg PO QPM Qty: 90 1RF Rx Instructions: take with food omega-3 fatty acids 1,000 mg capsule 1,000 mg PO QPM cholecalciferol (vitamin D3) 1,000 unit capsule 1,000 units PO BID Medical Marijuana 1 dose PO DIRECTED thiamine HCl (vitamin B1) 100 mg tablet 100 mg PO QAM aspirin 81 mg Tablet,Delayed Release (Dr/Ec) 81 mg PO DAILY psyllium husk [Fiber-Caps (psyllium husk)] 0.52 gram Capsule 1.56 g PO DAILY Rx Instructions: Pt states the ones he takes also include slippery elm. PreserVision AREDS-2 250-90-40-1 mg Capsule 1 tab PO BID Discharge Orders: Discharge Order (Routine); Ordered 11/09/24 Ordered By: Rich Varner Admission Data Admit Date/Time: 11/03/24 14:49 Attending Provider: Cesar Jhaveri Admit Provider: Ruth Elder Primary Care Provider: Hank Peterson V. Other Providers: David Coon; [facility]; [facility] Other Interventions: Discharge Summary Assessment (RN) Last Done: 11/09/24 11:24 Supervising Physician Co-Signing Physician Notes I personally examined the patient and verified all olivo points of history and exam, discussed case, and agree with decision making with Dr Varner for SNF/rehab emphasis today. seems a bit more optimistic!. vitals noted nad heent nc at mmm breathing unlabored no accessory muscles good effort skin no rashes no pallor or icterus neuro no focal deficits. Osteoporotic fractures of L-spine and sacrumdid have radicular sx but fortunately nonsurgical appreciate spine input. brace helping. continue multimodal pain control, PT/OT eval and treat. lovenox for DVT proph. Will need outpatient follow-up with endocrine in regards to his osteoporosis. for SNF today abdominal pain/nausea/vomiting - likely all symptomatic constipation - ongoing vigilance/management at SNF stable for SNF, rehab emphasis - ultimate goal is home/independent again Resident Activity Tracking Resident Involvement: Resident Care Provided Care Provided: Adult Hospital Medicine
[2024-11-09 11:25] VITALS: BP 180/94
--- NOTE | 2024-11-09 18:14 | Billing Data ---
Date of Service November 09, 2024 Coding Level of Care Code 43560 IN/OBS DISCH 30 MIN/LESS
== END 2024-11-09 12:23 | DRG 543 ==
LOC: ED 11:20 → EDINP 14:49 → 2N 17:33